=== PATIENT | female | born 1995 ===

== ENCOUNTER 2020-07-21 15:48 | Inpatient (IN) | payer OTHER ==
[~2020-07-21] VITALS: Ht 154.9 cm; Wt 103.9 kg
== END 2020-07-23 10:11 | disposition home or self-care (01) | DRG 833 ==
LOC: OB/GYN 15:48
PROVIDERS: ADMIT Obstetrics & Gynecology Maternal & Fetal Medicine; ATTEND Obstetrics & Gynecology Maternal & Fetal Medicine
DX: O24.111 Pre-existing type 2 diabetes mellitus, in pregnancy, first trimester (principal); E11.9 Type 2 diabetes mellitus without complications; Z3A.08 8 weeks gestation of pregnancy